=== PATIENT | male | born 1980 ===

== ENCOUNTER 2019-09-21 08:20 | Emergency (ER) | payer SELFPAY ==
[~2019-09-21] VITALS: Ht 162.6 cm; Wt 68.0 kg
[2019-09-21] MEDS ORDERED: PRED20 PO (11:04)
[2019-09-21] MEDS ORDERED: EPIPEN0.3 MG/0.3 IM (11:04)
== END 2019-09-21 11:10 | disposition home or self-care (01) ==
LOC: ER 08:20
DX: L23.9 Allergic contact dermatitis, unspecified cause (principal); T36.0X5A Adverse effect of penicillins, initial encounter
CPT/HCPCS: 96361; 96372-59; 96374; 96375; 99283-25; J0171; J1200; J2930; J7030